=== PATIENT | female | born 1995 | race Two or more races ===

== ENCOUNTER 2020-02-17 23:43 | Emergency (ER) | payer OTHER ==
[~2020-02-17] VITALS: Ht 165.1 cm; Wt 74.8 kg
--- NOTE | 2020-02-18 | NUR ---
PT BIBRA FOR ALCOHOL INTOXICATION. PT APPEARS TO BE INTOXICATED. EMESIS NOTED. PT REFUSES TO ANSWER QUESTION AND STATES "I AM FINE, LEAVE ME ALONE". PT CONNECTED TO THE MONITOR AND POX
--- NOTE | 2020-02-18 00:15 | NUR ---
PT STARTS REMOVING HER BLOOD PRESSURE CUFF AND POX
[2020-02-18] MEDS ORDERED: ONDANSETRON 4 MG TAB.RAPDIS ONE (00:17)
[2020-02-18] MEDS ORDERED: ONDANSETRON HCL 4 MG/5 ML SOLUTION PO ONE (00:30)
--- NOTE | 2020-02-18 01:08 | NUR ---
PT REFUSED TO HAVE HER VS RETAKEN
--- NOTE | 2020-02-18 04:00 | NUR ---
MEDIA ASSOCIATE 30 MINS
--- NOTE | 2020-02-18 04:17 | NUR ---
Patient discharged to home in stable condition. Written and verbal after care instructions given. Patient verbalizes understanding of instruction.pt. ambulatory with a steady gait
[2020-02-18 04:18] VITALS: BP 111/58
== END 2020-02-18 04:19 | disposition home or self-care (01) ==
LOC: ER 23:46
DX: F10.129 Alcohol abuse with intoxication, unspecified (principal); R11.10 Vomiting, unspecified; Y90.9 Presence of alcohol in blood, level not specified
CPT/HCPCS: 99283; Q0162